=== PATIENT | male | born 1945 | race Caucasian/White ===

== ENCOUNTER → 2017-04-18 | Outpatient (REF) ==
[~2017-04-18] MED LIST: DROSPIRENONE; LISINOPRIL
[2017-04-18 18:43] LABS: THYROID STIMULATING HORMONE 1.24 uIU/mL (0.465-4.680)
== END ==
LOC: ZLAB.WCH 18:00
PROVIDERS: Physician Assistant
DX: Z01.89 Encounter for other specified special examinations (principal)